=== PATIENT | female | born 1980 | race Hispanic/Latino ===

== ENCOUNTER 2019-02-08 08:55 | Emergency (ER) | payer MEDICAID ==
[2019-02-08] MEDS ORDERED: DEXAMETHASONE SOD PHOSPHATE 10MG/ML 1ML VIAL ONE (09:31)
[2019-02-08] MEDS ORDERED: CEFTRIAXONE SODIUM 1 GM ONE (09:31)
[2019-02-08] MEDS ORDERED: LIDOCAINE HCL 1% 20 ML VIAL ONE (09:32)
[2019-02-08] MEDS ORDERED: IPRATROPIUM/ALBUTEROL SULFATE 3 ML SOLUTION IH ONE (09:35)
== END 2019-02-08 11:39 | disposition home or self-care (01) ==
LOC: EDH 08:55
DX: J20.9 Acute bronchitis, unspecified (principal); Z90.49 Acquired absence of other specified parts of digestive tract; Z87.891 Personal history of nicotine dependence
CPT/HCPCS: 71046; 94640; 96372 ×2; 99284; J0696; J1100

== ENCOUNTER 2019-09-04 20:26 | Emergency (ER) | payer MEDICAID ==
[2019-09-04] MEDS ORDERED: ACETAMINOPHEN EXTRA STRENGTH 500 MG TABLET ONE (20:43)
[2019-09-04] MEDS ORDERED: ACETAMINOPHEN ELIXIR 650 MG/20.3 ML UDCUP ONE (20:46)
== END 2019-09-04 22:09 | disposition home or self-care (01) ==
LOC: EDH 20:26
DX: S93.402A Sprain of unspecified ligament of left ankle, initial encounter (principal); X58.XXXA Exposure to other specified factors, initial encounter; Y93.01 Activity, walking, marching and hiking; Y92.098 Other place in other non-institutional residence as the place of occurrence of the external cause; Y99.8 Other external cause status; Z90.49 Acquired absence of other specified parts of digestive tract
CPT/HCPCS: 73610

== ENCOUNTER 2019-10-05 21:37 | Emergency (ER) | payer MEDICAID ==
[2019-10-05] MEDS ORDERED: KETOROLAC TROMETHAMINE 60 MG/2 ML VIAL ONE (22:26)
== END 2019-10-05 23:19 | disposition home or self-care (01) ==
LOC: EDH 21:37
DX: S93.402A Sprain of unspecified ligament of left ankle, initial encounter (principal); Z90.49 Acquired absence of other specified parts of digestive tract; X58.XXXA Exposure to other specified factors, initial encounter; Y93.89 Activity, other specified; Y92.89 Other specified places as the place of occurrence of the external cause; Y99.8 Other external cause status
CPT/HCPCS: 73610; 96372; 99283; J1885

== ENCOUNTER 2022-04-14 03:56 | Emergency (ER) | payer MEDICAID ==
[~2022-04-14] VITALS: Ht 160 cm; Wt 81.6 kg
[2022-04-14 04:28] LABS: BASOPHILS % (AUTO) 0.6 % (0.0-5.0); EOSINOPHILS % (AUTO) 2.3 % (0.0-8.0); HEMATOCRIT 37.7 % (36-48); LYMPHOCYTES % (AUTO) 21.7 % (21.0-51.0); MEAN CORPUSCULAR HEMOGLOBIN 27.1 pg (27.0-33.0); MEAN CORPUSCULAR HGB CONC 32.1 g/dL (32.0-36.0); MEAN CORPUSCULAR VOLUME 84.3 fL (79-99); NEUTROPHILS % (AUTO) 68.6 % (40.0-77.0); PLATELET COUNT (AUTO) 285 K/uL (130-400); RED BLOOD CELL COUNT(AUTO) 4.47 MIL/uL (4.00-5.50); RED CELL DISTRIBUTION WIDTH 13.8 % (11.0-15.5); WHITE BLOOD COUNT (AUTO) 12.9 K/uL (4.8-10.8)
[2022-04-14] MEDS ORDERED: PROCHLORPERAZINE 10MG/2ML INJ IV ONE (04:30)
[2022-04-14] MEDS ORDERED: KETOROLAC 15MG/ML VIAL (15MG/ML) IV ONE (04:30)
[2022-04-14] MEDS ORDERED: 0.9%NACL 1000ML 1,000 ML IV SCH (04:30)
[2022-04-14 04:38] LABS: APPEARANCE,URINE CLEAR (CLEAR); BILIRUBIN,URINE NEGATIVE (NEGATIVE); COLOR,URINE YELLOW (YELLOW); GLUCOSE, URINE (UA) NEGATIVE (NEGATIVE); KETONES,URINE NEGATIVE (NEGATIVE); LEUKOCYTE ESTERASE ,URINE NEGATIVE Leu/uL (NEGATIVE); NITRATE,URINE NEGATIVE (NEGATIVE); OCCULT BLOOD,URINE NEGATIVE (NEGATIVE); PROTEIN,URINE NEGATIVE (NEGATIVE); UROBILINOGEN,URINE 0.2 mg/dL (0.2-1.0)
[2022-04-14 04:44] LABS: CREATININE 0.7 mg/dL (0.5-1.5); POTASSIUM 4.1 mmol/L (3.5-5.1)
[2022-04-14 04:48] LABS: ALBUMIN 3.4 g/dL (3.5-5.0); TOTAL PROTEIN, SERUM 7.2 g/dL (6.0-8.3)
[2022-04-14] MEDS ORDERED: FAMOTIDINE 20MG VIAL IV ONE (07:00)
[2022-04-14] MEDS ORDERED: FAMO20TA8 PO (08:18)
[2022-04-14 08:34] VITALS: BP 142/81
== END 2022-04-14 08:35 | disposition home or self-care (01) ==
LOC: EDH 03:56
DX: R10.31 Right lower quadrant pain (principal); R10.32 Left lower quadrant pain; Z87.442 Personal history of urinary calculi
CPT/HCPCS: 99285; 74176; 96374; 76856; 96361; 96375; 80053; 83690; 85025; 81003; 36415; J7030; J0780; J1885; S0028; J3490

== ENCOUNTER 2024-07-08 07:02 | Emergency (ER) | payer SELFPAY ==
[~2024-07-08] VITALS: Ht 152.4 cm; Wt 81.6 kg
[~2024-07-08 07:02] MED LIST: FAMO20TA8 PO
--- NOTE | 2024-07-08 07:38 | EKG ---
[facility] Test Date: 2024-07-08 Test Time: 07:25:42 Pat Name: BRIDGET IRAHETA Department: [facility] Room: Gender: F Plan Coordinator: [id number] : 1980 Requested By: PAMELA DESAI Order Number: [id number] Reading MD: Cookie Qiu Measurements Intervals [place] Rate: 77 P: 38 [place]: 150 QRS: 1 QRSD: 96 T: -9 QT: 402 QTc: 454 Interpretive Statements Sinus rhythm No previous ECG available for comparison Electronically Signed On 07-09-2024 08:40:04 [employer]ESS[employer] by Cookie Qiu Please click the below link to view image of tracing.
[2024-07-08] MEDS: 0.9%NACL 1000ML 1,000 ML IV ONE (07:43)
[2024-07-08 07:48] LABS: BASOPHILS # (AUTO) 0.05 K/uL (0.00-0.20); BASOPHILS % (AUTO) 0.4 % (0.0-5.0); EOSINOPHILS # (AUTO) 0.17 K/uL (0.00-0.70); EOSINOPHILS % (AUTO) 1.5 % (0.0-8.0); HEMATOCRIT 36.7 % (36-48); IMMATURE GRANULOCYTE ABSOLUTE 0.18 K/uL (0-1); LYMPHOCYTES # (AUTO) 1.8 K/uL (1.0-4.8); LYMPHOCYTES % (AUTO) 15.9 % (21.0-51.0); MEAN CORPUSCULAR HEMOGLOBIN 25.7 pg (27.0-33.0); MEAN CORPUSCULAR HGB CONC 31.9 g/dL (32.0-36.0); MEAN CORPUSCULAR VOLUME 80.7 fL (79-99); MONOCYTES # (AUTO) 0.5 K/uL (0.1-1.0); NEUTROPHILS # (AUTO) 8.8 K/uL (1.8-7.7); NEUTROPHILS % (AUTO) 76.6 % (40.0-77.0); PLATELET COUNT (AUTO) 257 K/uL (130-400); RED BLOOD CELL COUNT(AUTO) 4.55 MIL/uL (4.00-5.50); RED CELL DISTRIBUTION WIDTH 14.3 % (11.0-15.5); WHITE BLOOD COUNT (AUTO) 11.5 K/uL (4.8-10.8)
[2024-07-08 07:54] LABS: INR 0.97 (0.85-1.15); PROTHROMBIN TIME 10.3 SEC (9.6-11.6)
--- NOTE | 2024-07-08 08:03 | ERN ---
General Chief Complaint: Dizzy/Light Headed Stated Complaint: DIZZINESS Time Seen by MD: 07:24 History of Present Illness Initial Comments 44-year-old female brought in by partner for altered mentation. According to the patient and partner, patient was in her normal state of health yesterday. They ate dinner normally. Earlier this morning a few hours ago she woke up with diarrhea and she vomited. She reported feeling very dizzy. She had no other complaints. Since then the patient has had difficulty arousing according to the partner. Currently the patient was able to open her eyes to pain, she does make eye contact, but she immediately goes back to sleep. She was moving all limbs. There is no obvious trauma. Denies any drug abuse according to family. Allergies: Coded Allergies: No Known Allergies (Unverified Allergy, Unknown, 02/08/19) Home Meds Active Scripts Ondansetron (Ondansetron Odt) 4 Mg Tab.rapdis, 1 TAB PO Q6HPRN PRN for nausea/vomiting for 3 Days, #10 TAB 0 Refills Prov:MAURO ESCAMILLA DO 07/08/24 Meclizine HCl (Antivert) 25 Mg Tab.chew, 25 MG PO TIDP for dizziness, #20 TAB.CHEW Prov:MAURO ESCAMILLA DO 07/08/24 Famotidine (Famotidine) 20 Mg Tablet, 20 MG PO BID for 30 Days, #60 TAB Prov:PAMELA DESAI MD 04/14/22 Past Medical History Past Medical History: No Pertinent History Medical History Other: HX OF KIDNEY STONES Past Surgical History: None Results Laboratory and Microbiology Lab and Micro Result Laboratory Tests Test 07/08/24 07:35 07/08/24 08:48 07/08/24 09:14 07/08/24 09:21 White Blood Count 11.5 K/uL (4.8-10.8) H Red Blood Count 4.55 MIL/uL (4.00-5.50) Hemoglobin 11.7 g/dL (12.0-16.0) L Hematocrit 36.7 % (36-48) Mean Corpuscular Volume 80.7 fL (79-99) Mean Corpuscular Hemoglobin 25.7 pg (27.0-33.0) L Mean Corpuscular Hemoglobin Concent 31.9 g/dL (32.0-36.0) L Red Cell Distribution Width 14.3 % (11.0-15.5) Platelet Count 257 K/uL (130-400) Mean Platelet Volume 9.4 fL (7.5-10.5) Immature Granulocyte % (Auto) 1.6 % (0-1) H Neutrophils (%) (Auto) 76.6 % (40.0-77.0) Lymphocytes (%) (Auto) 15.9 % (21.0-51.0) L Monocytes (%) (Auto) 4.0 % (3.0-13.0) Eosinophils (%) (Auto) 1.5 % (0.0-8.0) Basophils (%) (Auto) 0.4 % (0.0-5.0) Neutrophils # (Auto) 8.8 K/uL (1.8-7.7) H Lymphocytes # (Auto) 1.8 K/uL (1.0-4.8) Monocytes # (Auto) 0.5 K/uL (0.1-1.0) Eosinophils # (Auto) 0.17 K/uL (0.00-0.70) Basophils # (Auto) 0.05 K/uL (0.00-0.20) Absolute Immature Granulocyte (auto 0.18 K/uL (0-1) Nucleated Red Blood Cells 0.0 % (0.0-0.19) Prothrombin Time 10.3 SEC (9.6-11.6) Prothromb Time International Ratio 0.97 (0.85-1.15) Sodium Level 138 mmol/L (136-145) Potassium Level 3.6 mmol/L (3.5-5.1) Chloride Level 106 mmol/L (101-111) Carbon Dioxide Level 26 mmol/L (21-32) Blood Urea Nitrogen 9 mg/dL (7-18) Creatinine 0.5 mg/dL (0.5-1.0) Glomerular Filtration Rate Calc 120 mL/min (>90) Random Glucose 157 mg/dL (70-105) H Total Calcium 8.3 mg/dL (8.5-10.1) L Magnesium Level 1.90 mg/dL (1.80-2.40) Total Bilirubin 0.7 mg/dL (0.2-1.0) Direct Bilirubin 0.1 mg/dL (0.0-0.3) Aspartate Amino Transf (AST/SGOT) 14 U/L (10-37) Alanine Aminotransferase (ALT/SGPT) 20 U/L (12-78) Alkaline Phosphatase 108 U/L (50-136) Total Creatine Kinase 70 U/L (21-232) Troponin I High Sensitivity 6 ng/L (4-50) B-Type Natriuretic Peptide 6 pg/mL (0-100) Total Protein 6.9 g/dL (6.0-8.3) Albumin 3.2 g/dL (3.5-5.0) L Salicylates Level < 2.8 mg/dL (2.8-20.0) L Acetaminophen Level < 1 mcg/mL (10-30) L Serum Alcohol < 3 mg/dL (0-10) Whole Blood Glucose 146 MG/DL (70-110) H Urine Color LIGHT-YELLOW (YELLOW) Urine Appearance HAZY (CLEAR) Urine pH 8.0 (5.0-8.0) Urine Specific [place] 1.013 (1.001-1.031) Urine Protein NEGATIVE mg/dL (NEGATIVE) Urine Glucose (UA) NEGATIVE mg/dL (NEGATIVE) Urine Ketones NEGATIVE mg/dL (NEGATIVE) Urine Occult Blood NEGATIVE (NEGATIVE) Urine Nitrate NEGATIVE (NEGATIVE) Urine Bilirubin NEGATIVE mg/dL (NEGATIVE) Urine Urobilinogen 0.2 mg/dL (0.2-1.0) Urine Leukocyte Esterase NEGATIVE Sam/uL Urine RBC 0-1 /HPF (0-1) Urine WBC 0-1 /HPF (0-1) Urine Squamous Epithelial Cells RARE /HPF (0-2) Urine Amorphous Crystals (Auto) RARE /LPF (None Seen) Urine Bacteria RARE /HPF (None Seen) Urine HCG, Qualitative NEGATIVE (NEGATIVE) Urine Opiates Screen NEGATIVE (NEGATIVE) Urine Barbiturates Screen NEGATIVE (NEGATIVE) Urine Phencyclidine Screen NEGATIVE (NEGATIVE) Urine Amphetamines Screen NEGATIVE (NEGATIVE) Urine Benzodiazepines Screen NEGATIVE (NEGATIVE) Urine Cocaine Screen NEGATIVE (NEGATIVE) Urine Marijuana (THC) Screen NEGATIVE (NEGATIVE) Lactic Acid Level 2.5 mmol/L (0.8-2.5) Ammonia < 10 umol/L (11-32) L Test 07/08/24 14:22 Lactic Acid Level 1.4 mmol/L (0.8-2.5) MDM CC: Dizziness, lethargy Historian: Patient Comorbidities: Obesity Limitations by social determinants of health: Uninsured Differential diagnosis: Gastroenteritis, dehydration, stroke, vertigo, el ectrolyte abnormalities, other. Vital signs: Stable, remained stable here in the ER. EKG: Sinus rhythm rate of 77 normal axis good R-wave progression intervals stable. Independently interpreted by me. Labs (independently ordered and interpreted by me): Mild leukocytosis 11.5k no shift or bands. No anemia. Coags are stable. Metabolic panel is unremarkable. Glucose stable. Liver enzymes are normal. CK normal. Troponin normal. BNP normal. Protein albumin normal. Tylenol level alcohol level and salicylate level negative. Urinalysis is normal. Tox screen is normal. CT head without contrast (independently interpreted by me ): No acute bleeding. CT abdomen and pelvis without contrast ( independently interpreted by me): No acute findings CXR ( independently interpreted by me ): No acute abnormalities no focal infiltrates. Treatment in ER: 1 L normal saline, meclizine, reglan, valium. Re-evaluation: she continues with dizziness and nausea. Will admit for observation, treatment for persistent vertigo. Consultation: Dr Patten, neuro. He recommends MRI brain. If any signs of stroke, reconsult him. Otherwise, treat as vertigo and consult ENT outpatient. Consult: Dr Hirsch, hospitalist. Accepts admission. The patient ended up being discharged from the emergency department. I initially thought the patient had benign positional vertigo. I tried to treat her symptoms but she continued with the vertigo, prompting the admission for symptomatic relief. Hospitalist to request a consultation from Neurology who recommended an MRI to rule out a posterior stroke. This was ordered. Call your pending this MRI, the patient took a nap, and when she awoke she was able to walk. She had no further symptoms. Her cranial nerves were intact. I re-evalu ated her and I do not see any signs of cranial nerve deficits. She no longer has symptoms. This does support the diagnosis of benign positional vertigo. This point in time I canceled the further studies and discharge the patient at this was previously planned. ED Course Orders Procedure Category Date Status Time Cbc With Differential LAB 07/08/24 Complete 07:19 Prothrombin Time With LAB 07/08/24 Complete INR 07:19 B-Type Natriuretic LAB 07/08/24 Complete Peptide 07:19 Chest 1vw RAD 07/08/24 Resulted 07:19 12 Lead Ekg Tracing- EKG 07/08/24 Complete Technical 07:19 0.9%Nacl 1000ml (Ns PHA 07/08/24 Complete 1000ml) 07:30 ,Urine Test LAB 07/08/24 Complete 07:19 Creatine Kinase, Total LAB 07/08/24 Complete 07:19 Troponin I High LAB 07/08/24 Complete Sensitivity 07:19 Urinalysis Profile LAB 07/08/24 Complete 07:19 Basic Metabolic Panel LAB 07/08/24 Complete 07:19 Drug Screen Urine LAB 07/08/24 Complete 08:00 Ct Head/Brain W/O CT 07/08/24 Resulted Contrast 08:00 Ct Abdomen/Pelvis W/O CT 07/08/24 Resulted Contrast 08:00 Lactic Acid LAB 07/08/24 Complete 08:00 Ammonia LAB 07/08/24 Complete 08:00 Hepatic Function Panel LAB 07/08/24 Complete 08:01 Acetaminophen LAB 07/08/24 Complete 08:01 Salicylate LAB 07/08/24 Complete 08:01 Alcohol, Blood LAB 07/08/24 Complete 08:01 Magnesium LAB 07/08/24 Complete 08:01 Ammonia LAB 07/08/24 Complete 08:00 Nurse Driven [place]ax KELLY 07/08/24 Complete Removal Pro 09:17 Meclizine Hcl 25 Mg PHA 07/08/24 Complete (Antivert 25 Mg) 11:00 Metoclopramide 10 PHA 07/08/24 Complete Mg/2 Ml Vial (Reglan 1 12:00 Diazepam 5 Mg/Ml 2 Ml PHA 07/08/24 Complete Syg (Valium 5 Mg/M 12:00 Ketorolac PHA 07/08/24 Complete Tromethamine 15mg/Ml 12:30 Lactic Acid (Removed) LAB 07/08/24 Complete 12:33 Current Medications Medications (Trade) Dose Ordered Sig/Belia Route PRN Reason Start Time Stop Time Status Last Admin Dose Admin Diazepam (VALium 5 MG/ML 2 ML SYG) 5 mg ONCE ONCE IVP 07/08/24 12:00 07/08/24 12:01 DC 07/08/24 12:46 Ketorolac Tromethamine (toRADol) 15 mg ONCE ONCE IV 07/08/24 12:30 07/08/24 12:31 DC 07/08/24 12:45 Meclizine HCl (ANTIvert 25 mg) 25 mg ONCE ONCE PO 07/08/24 11:00 07/08/24 11:01 DC 07/08/24 11:05 Metoclopramide HCl (regLAN 10MG IV) 5 mg ONCE ONCE IVP 07/08/24 12:00 07/08/24 12:01 DC 07/08/24 12:44 Sodium Chloride 1,000 ml @ 0 mls/hr ONCE ONCE IV 07/08/24 07:30 07/08/24 07:31 DC 07/08/24 07:43 Vital Signs Date Time Temp Pulse Resp B/P (MAP) Pulse Ox O2 Delivery O2 Flow Rate FiO2 07/08/24 15:03 98.6 100 20 134/74 99 Room Air* 0 07/08/24 08:15 97.0 85 16 149/93 0 Room Air* 0 21 07/08/24 07:40 85 16 149/93 95 Room Air* 0 21 07/08/24 07:03 97.0 84 16 139/89 0 Room Air DX & DISP Disposition: Inpatient Departure Impression: Primary Impression: Vertigo Additional Impression: Dizziness Condition: Stable Scripts Ondansetron (Ondansetron Odt) 4 Mg Tab.rapdis 1 TAB PO Q6HPRN PRN for nausea/vomiting for 3 Days, #10 TAB 0 Refills Prov: MAURO ESCAMILLA DO 07/08/24 Meclizine HCl (Antivert) 25 Mg Tab.chew 25 MG PO TIDP for dizziness, #20 TAB.CHEW Prov: MAURO ESCAMILLA DO 07/08/24 Additional Instructions: Your symptoms are most consistent with a vertigo. This is often caused by an inner ear problem. It was often benign and goes away on its own. It causes dizziness and vomiting. Your vital signs have been stable here in the ER. Your EKG is normal. The CT scan of your brain is normal. The CT scan of your abdomen and pelvis is normal. Your chest x-ray is normal. Your blood work ( CBC with differential, coags, metabolic panel, lactic acid, magnesium level, liver function tests, ammonia, CK, troponin, BNP, salicylate level, acetaminophen level, serum alcohol level) is normal. Your urinalysis and drug screen are normal. You received a 1 L here of normal saline. I have prescribed meclizine ( Antivert). When you are feeling vertigo type symptoms, I recommend that you take this medicine with a glass of water. Try to take a nap afterwards and for most people this will help with symptoms. I have also prescribed Zofran dissolvable tabs. Use this as needed for vomiting. I recommend that you move slowly when changing positions (especially from lying down to sitting or standing). Reduce salt, caffeine, and alcohol intake as these can worsen dizziness. Be sure to stay hydrated. Drink plenty of liquids. Please follow up with the primary doctor. You may need further studies or treatment. Return to the emergency department as needed. Referrals: NONE (PCP) MAURO ESCAMILLA DO Jul 08, 2024 08:03
[2024-07-08 08:06] LABS: B-TYPE NATRIURETIC PEPTIDE 6 pg/mL (0-100)
[2024-07-08 08:14] LABS: CREATININE 0.5 mg/dL (0.5-1.0); POTASSIUM 3.6 mmol/L (3.5-5.1)
[2024-07-08 08:43] LABS: ALANINE AMINOTRANSFERASE 20 U/L (12-78); ALBUMIN 3.2 g/dL (3.5-5.0); ALCOHOL, BLOOD < 3 mg/dL (0-10); ASPARTATE AMINOTRANSFERASE 14 U/L (10-37); BILIRUBIN,DIRECT 0.1 mg/dL (0.0-0.3); BILIRUBIN,TOTAL 0.7 mg/dL (0.2-1.0); TOTAL PROTEIN, SERUM 6.9 g/dL (6.0-8.3)
[2024-07-08 08:59] LABS: SALICYLATE < 2.8 mg/dL (2.8-20.0)
[2024-07-08 09:00] LABS: ACETAMINOPHEN < 1 mcg/mL (10-30)
--- NOTE | 2024-07-08 09:18 | HMCIMG ---
CT HEAD/BRAIN W/O CONTRAST HISTORY: Dizziness COMPARISON: None TECHNIQUE: Multiple sequential axial images of the head were obtained from the base of the skull through vertex. Patient was not given contrast through intravenous route. FINDINGS: The ventricles and extraventricular CSF spaces are nondilated for patient's age. There is no midline shift, mass effect or herniation. No acute intracranial bleed is seen. Mild bilateral ethmoid and maxillary sinusitis with mucoperiosteal thickening. IMPRESSION: 1. No acute intracranial bleed is seen. CT was performed with one or more following dose reduction techniques: automated exposure control, adjustment of the mA and kv according to patient's size, or use of a iterative reconstruction technique.
[2024-07-08 09:27] LABS: BILIRUBIN,URINE NEGATIVE (NEGATIVE); COLOR,URINE LIGHT-YELLOW (YELLOW); GLUCOSE, URINE (UA) NEGATIVE (NEGATIVE); KETONES,URINE NEGATIVE (NEGATIVE); LEUKOCYTE ESTERASE ,URINE NEGATIVE Leu/uL (NEGATIVE); NITRATE,URINE NEGATIVE (NEGATIVE); OCCULT BLOOD,URINE NEGATIVE (NEGATIVE); PROTEIN,URINE NEGATIVE (NEGATIVE); UROBILINOGEN,URINE 0.2 mg/dL (0.2-1.0)
[2024-07-08 09:30] LABS: APPEARANCE,URINE HAZY (CLEAR)
[2024-07-08 09:31] LABS: ADD UA MICROSCOPIC YES; BACTERIA,URINE RARE /HPF (None Seen); MUCUS,URINE RARE LPF (None Seen); RBC,URINE 0-1 /HPF (0-1); SQUAMOUS EPITHELIAL CELL,UR RARE /HPF (0-2); WBC,URINE 0-1 /HPF (0-1)
[2024-07-08 09:34] LABS: AMPHET/METH SCREEN,URINE NEGATIVE (NEGATIVE); BARBITURATE SCREEN, URINE NEGATIVE (NEGATIVE); BENZODIAZEPINES SCREEN,URINE NEGATIVE (NEGATIVE); CANNABINOID SCREEN,URINE NEGATIVE (NEGATIVE); COCAINE SCREEN,URINE NEGATIVE (NEGATIVE); OPIATE SCREEN,URINE NEGATIVE (NEGATIVE); PHENCYCLIDINE SCREEN,URINE NEGATIVE (NEGATIVE)
--- NOTE | 2024-07-08 09:39 | HMCIMG ---
CT ABDOMEN/PELVIS W/O CONTRAST HISTORY: Altered mental status COMPARISON: None TECHNIQUE: Multiple sequential axial images of the abdomen and pelvis were obtained from the dome of the diaphragm through symphysis pubis. Patient was not given contrast through intravenous route. Oral contrast was not given. FINDINGS: No pleural effusion is seen bilaterally. Mild bilateral pulmonary infiltrates are seen. Liver is enlarged with fatty changes measuring 21 cm. Postcholecystectomy changes are seen. There is no evidence of parenchymal disease or pulmonary nodule of the visualized lower lungs. Degenerative changes of the thoracolumbar spine are present. The heart is not enlarged. The liver, spleen, adrenal glands and pancreas are unremarkable. There is no evidence of hydronephrosis bilaterally. No evidence of renal stone is seen. Fecal material is seen in the colon. There are normal size retroperitoneal and mesenteric lymph nodes. No ascites is seen. Appendix is not well seen limiting evaluation. No definite CT evidence of acute appendicitis is seen. Uterus is not seen. Pelvic sidewalls are symmetric bilaterally. Bladder is poorly distended. IMPRESSION: 1. No acute findings. CT was performed with one or more following dose reduction techniques: automated exposure control, adjustment of the mA and kv according to patient's size, or use of a iterative reconstruction technique.
[2024-07-08 09:40] LABS: AMMONIA < 10 umol/L (11-32)
--- NOTE | 2024-07-08 09:41 | HMCIMG ---
CHEST 1VW HISTORY: Chest pain COMPARISON: 02/08/2019 FINDINGS: A frontal projection of the chest was obtained. Mild bilateral pulmonary infiltrates are seen may be related to mild pulmonary vascular congestion with possible superimposed pneumonitis. The heart is borderline enlarged. Degenerative changes are seen. No evidence of aortic calcification is seen. IMPRESSION: 1. Mild bilateral pulmonary infiltrates are seen may be related to mild pulmonary vascular congestion with possible superimposed pneumonitis.
[2024-07-08 09:49] LABS: HCG,QUALITATIVE URINE NEGATIVE (NEGATIVE)
[2024-07-08] MEDS ORDERED: MECL-262 PO (10:01)
[2024-07-08] MEDS ORDERED: ONDA-243 PO (10:01)
[2024-07-08] MEDS: mecliZINE HCL 25 MG TABLET PO ONE (11:05)
--- NOTE | 2024-07-08 11:50 | NUR ---
MOVED TO [place] [id number] AT THIS TIME
--- NOTE | 2024-07-08 11:51 | NUR ---
PATIENT REPORT GIVEN TO NURSE BET
[2024-07-08] MEDS: metoCLOPRAmide 10 MG/2 ML VIAL IVP ONE (12:44)
[2024-07-08] MEDS: ketOROlac 15MG/ML VIAL (15MG/ML) IV ONE (12:45)
[2024-07-08] MEDS: diazePAM 5 MG/ML 2 ML SYG IVP ONE (12:46)
--- NOTE | 2024-07-08 14:11 | NUR ---
TOOK OVER A PATIENT AT THIS TIME
[2024-07-08 15:03] VITALS: BP 134/74; PULSE 100; RESP 20; TEMP 98.6; O2SAT 99
--- NOTE | 2024-07-08 15:40 | NUR ---
SCOTT REMOVED PER ED DOCTOR, TOLERATED WELL
== END 2024-07-08 15:41 | disposition home or self-care (01) ==
LOC: EDH 07:02
DX: R42 Dizziness and giddiness (principal); E66.9 Obesity, unspecified; Z79.01 Long term (current) use of anticoagulants; Z79.899 Other long term (current) drug therapy
CPT/HCPCS: 99285; 70450; 96374; 96375; 71045; 96361; 82550; 80076; 83735; 84484; 80048; 83880; 80305; 82140; 85025; 85610; 82948; 83605 ×2; 81025; 36415; 74176; 93005; 81001; J1885; G0481; J7030; J3360; J2765; 99282